=== PATIENT | male | born 1955 | race Caucasian/White ===

== ENCOUNTER → 2016-07-14 | Outpatient (CLI) | payer OTHER ==
--- NOTE | 2016-07-14 09:19 | REP ---
Clinical: Essential hypertension . Comparison: 06/30/2015 . Technique: PA and lateral. Findings: The mediastinum and cardiac silhouette are normal. The lung rock are clear and without acute consolidation, effusion, or pneumothorax. The skeletal structures are intact and normal. Impression: 1. No acute cardiopulmonary process. Signed by Danish Yates MD 07/14/2016 09:10 A
[2016-07-14 09:27] LABS: MEAN CORPUSCULAR HEMOGLOBIN 31.1 pg (27.0-33.0); MEAN CORPUSCULAR HGB CONC 34.4 g/dl (32.0-36.5); MEAN CORPUSCULAR VOLUME 90.4 fl (80.0-96.0); RED CELL DISTRIBUTION WIDTH 12.7 % (11.5-14.5); WHITE BLOOD COUNT 7.8 K/mm3 (4.0-10.0)
--- NOTE | 2016-07-14 09:34 | ECGEPIP ---
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
[2016-07-14 10:01] LABS: ALBUMIN 3.2 GM/DL (3.2-5.2); ALBUMIN/GLOBULIN RATIO 0.86 (1.00-1.93); BILIRUBIN,TOTAL 0.5 MG/DL (0.2-1.0); CALCIUM LEVEL 8.3 MG/DL (8.5-10.1); CREATININE FOR GFR 1.34 MG/DL (0.70-1.30); GLOMERULAR FILTRATION RATE 58.3 (>56); POTASSIUM SERUM 3.4 MEQ/L (3.5-5.1); TOTAL PROTEIN 6.9 GM/DL (6.4-8.2)
== END ==
LOC: M LAB 08:20
PROVIDERS: ATTEND Family Medicine
DX: I10 Essential (primary) hypertension (principal)

== ENCOUNTER 2017-02-12 11:44 | Emergency (ER) | payer OTHER ==
[~2017-02-12] VITALS: Ht 170.2 cm; Wt 95.5 kg
[2017-02-12 11:44] VITALS: BP 129/81
[2017-02-12] MEDS ORDERED: PRAV40TA2 (11:58)
[2017-02-12] MEDS ORDERED: FLUO40CA (11:58)
[2017-02-12] MEDS ORDERED: LOSA50TA20 (11:58)
[2017-02-12] MEDS ORDERED: ALPR1TAB3 (11:58)
[2017-02-12] MEDS ORDERED: TRIAMTERENE-HCTZ (11:58)
[2017-02-12] MEDS ORDERED: CEFD1CAP8 PO (12:35)
[2017-02-12] MEDS ORDERED: PRED20TA PO (12:36)
[2017-02-12] MEDS ORDERED: PROAAER10 INH (12:36)
== END 2017-02-12 12:46 | disposition home or self-care (01) ==
LOC: M ED 11:44
DX: J20.9 Acute bronchitis, unspecified (principal); J01.90 Acute sinusitis, unspecified; I10 Essential (primary) hypertension; E78.5 Hyperlipidemia, unspecified; F41.9 Anxiety disorder, unspecified; F32.9 Major depressive disorder, single episode, unspecified; Z87.891 Personal history of nicotine dependence; Z79.899 Other long term (current) drug therapy

== ENCOUNTER → 2017-03-30 | Outpatient (REF) | payer OTHER ==
[2017-03-30 18:02] LABS: ANION GAP 9 MEQ/L (8-16); BLOOD UREA NITROGEN 9 MG/DL (7-18); CALCIUM LEVEL 9.1 MG/DL (8.5-10.1); CARBON DIOXIDE LEVEL 27 MEQ/L (21-32); CHLORIDE LEVEL 106 MEQ/L (98-107); CREATININE FOR GFR 1.11 MG/DL (0.70-1.30); GLOMERULAR FILTRATION RATE > 60.0 (>56); GLUCOSE, FASTING 104 MG/DL (70-100); POTASSIUM SERUM 4.3 MEQ/L (3.5-5.1); SODIUM LEVEL 142 MEQ/L (136-145)
[2017-03-30 19:46] LABS: ESTIMATED AVERAGE GLUCOSE 123 MG/DL (60-110); HEMOGLOBIN A1c 5.9 %
== END ==
LOC: M SFHCPLAZ 15:35
DX: R73.03 Prediabetes (principal); R79.89 Other specified abnormal findings of blood chemistry